=== PATIENT | female | born 1975 | race Caucasian/White ===

== ENCOUNTER 2021-10-05 11:49 | Emergency (ER) | payer BC ==
[2021-10-05] MEDS ORDERED: Sodium Chloride 0.9% 10 ML Syringe FLUSH PRN (12:07)
[2021-10-05] MEDS ORDERED: Sodium Chloride 0.9% 1,000 ML IV ONE (13:38)
[2021-10-05] MEDS ORDERED: Magnesium Sulfate/Water 2 GM in Premix Bag 1 BAG IV ONE (14:12)
[2021-10-05 14:22] LABS: CORONAVIRUS COVID-19 NAA NEGATIVE (NEGATIVE)
[2021-10-05 14:47] LABS: HEMOGLOBIN A1C 10.8 %
== END 2021-10-05 17:25 | disposition home or self-care (01) ==
LOC: JD.ED 11:49
DX: E83.42 Hypomagnesemia (principal); E11.9 Type 2 diabetes mellitus without complications; F17.210 Nicotine dependence, cigarettes, uncomplicated; Z20.822 Contact with and (suspected) exposure to COVID-19
CPT/HCPCS: 0240U; 36415; 80053; 81001; 82947; 83036; 83735; 84484; 85025; 85610; 85730; 86140; 93005; 96365; 96366; 99284; J3475; J3490; J7030; 93010

== ENCOUNTER 2021-10-06 12:33 | Emergency (ER) | payer BC ==
[2021-10-06] MEDS ORDERED: Sodium Chloride 0.9% 10 ML Syringe FLUSH PRN ×2 (13:18→13:23)
[2021-10-06] MEDS ORDERED: Iopamidol 755 Mg/ML 100 ML Bottle IVPUSH ONE (13:23)
[2021-10-06] MEDS ORDERED: Sodium Chloride 0.9% 100 ML IV SCH (13:30)
== END 2021-10-06 14:40 | disposition home or self-care (01) ==
LOC: JD.ED 12:33
DX: R79.89 Other specified abnormal findings of blood chemistry (principal); E11.9 Type 2 diabetes mellitus without complications; Z79.82 Long term (current) use of aspirin; Z79.899 Other long term (current) drug therapy; Z79.84 Long term (current) use of oral hypoglycemic drugs
CPT/HCPCS: 71275; 96360; 96361; 99283; J3490; Q9967; 99284

== ENCOUNTER 2022-05-14 16:10 | Emergency (ER) | payer BC ==
[2022-05-14] MEDS ORDERED: Ondansetron 4 MG/2 ML SDV IVPUSH ONE (16:45)
[2022-05-14] MEDS ORDERED: Sodium Chloride 0.9% 1,000 ML IV SCH (16:45)
[2022-05-14] MEDS ORDERED: Sodium Chloride 0.9% 10 ML Syringe FLUSH PRN (16:45)
[2022-05-14] MEDS ORDERED: Ketorolac 30 MG/ML SDV IVPUSH ONE (16:46)
[2022-05-14] MEDS ORDERED: HYDROmorphone 0.5 MG/0.5 ML Syringe IVPUSH ONE (16:47)
== END 2022-05-14 18:55 | disposition home or self-care (01) ==
LOC: JD.ED 16:10
DX: R10.12 Left upper quadrant pain (principal); M54.6 Pain in thoracic spine; E78.00 Pure hypercholesterolemia, unspecified; E11.9 Type 2 diabetes mellitus without complications; Z86.16 Personal history of COVID-19; Z72.0 Tobacco use; Z90.711 Acquired absence of uterus with remaining cervical stump; Z79.82 Long term (current) use of aspirin; Z79.84 Long term (current) use of oral hypoglycemic drugs; Z79.899 Other long term (current) drug therapy
CPT/HCPCS: 36415; 74176; 80053; 83690; 85025; 96361; 96374; 96375; 99284; J1170; J1885; J2405; J3490; J7030

== ENCOUNTER 2023-06-25 16:12 | Emergency (ER) | payer BC ==
[2023-06-25] MEDS: Methocarbamol 500 MG Tab PO ONE (19:17)
[2023-06-25] MEDS: Ketorolac 60 MG/2 ML SDV IM ONE (19:17)
== END 2023-06-25 19:23 | disposition home or self-care (01) ==
LOC: JD.ED 16:12
DX: M54.41 Lumbago with sciatica, right side (principal); E78.00 Pure hypercholesterolemia, unspecified; E11.9 Type 2 diabetes mellitus without complications; Z86.16 Personal history of COVID-19; Z79.82 Long term (current) use of aspirin; Z79.84 Long term (current) use of oral hypoglycemic drugs
CPT/HCPCS: 96372; 99283; A9270; J1885